=== PATIENT | male | born 1955 | race Two or more races ===

== ENCOUNTER 2017-06-18 06:30 | Day surgery (SDC) | payer OTHER ==
[2017-06-14 12:28] LABS: BASOPHILS % (AUTO) 1.2 % (0.0-2.0); EOSINOPHILS % (AUTO) 1.9 % (0.0-3.0); HEMATOCRIT 37.3 % (42.0-52.0); HEMOGLOBIN 12.2 G/DL (14.2-18.0); LYMPHOCYTES % (AUTO) 15.7 % (20.0-45.0); MEAN CORPUSCULAR VOLUME 86 FL (80-99); MONOCYTES % (AUTO) 10.2 % (1.0-10.0); NEUTROPHILS % (AUTO) 70.9 % (45.0-75.0); PLATELET COUNT 183 K/UL (150-450); RED BLOOD COUNT 4.36 M/UL (4.70-6.10); RED CELL DISTRIBUTION WIDTH 13.4 % (11.6-14.8); WHITE BLOOD COUNT 5.5 K/UL (4.8-10.8)
[2017-06-14 12:39] LABS: ANION GAP 6 mmol/L (5-15); BLOOD UREA NITROGEN 33 mg/dL (7-18); CARBON DIOXIDE 30 MMOL/L (21-32); CHLORIDE 105 MMOL/L (98-107); CREATININE 1.6 MG/DL (0.55-1.30); POTASSIUM 3.9 MMOL/L (3.5-5.1); SODIUM 141 MMOL/L (136-145)
--- NOTE | 2017-06-15 12:54 | Pre-Procedure Note/Attestation ---
Pre-Procedure Note/Attestation Complete Prior to Procedure Planned Procedure: left Procedure Narrative: phaco with iol Indications for Procedure Pre-Operative Diagnosis: cataract Attestation I attest that I discussed the nature of the procedure; its benefits; risks and complications; and alternatives (and the risks and benefits of such alternatives ), prior to the procedure, with the patient (or the patient's legal sales training representative). I attest that, if there was a reasonable possibility of needing a blood transfusion, the patient (or the patient's legal sales training representative) was given the [facility] standardized written summary, pursuant to the [place] Blood Safety Act ([place] Health and Safety Code # 1645, as amended). I attest that I re-evaluated the patient just prior to the surgery and that there has been no change in the patient's H&P, except as documented below: ESTER PARNELL Jun 15, 2017 12:54
--- NOTE | 2017-06-15 12:56 | Opthalmology H&P ---
Ophthalmology H&P H&P Chief Complaint: decreased vision in left eye HPI Vision Affects Ability to: read, focus/use eyes together, manage personal affairs HPI Narrative blurry vision Exam Visual Acuity: OD: 20/50 OS: CF Tension: OD: 12 OS: 14 Eye Exam: normal OU: external exam, palpebral fissure-width, marginal reflex distance, levator function, corneas, anterior chambers; findings: lens - OD: cortical OS: ns, fundus exam - pdr OU Assessment/Plan Diagnosis: (1) Cortical age-related cataract, left eye Attestation Attestation The risks and benefits of the surgery as well as alternative procedures were explained to the patient in detail. ESTER PARNELL Jun 15, 2017 12:56
--- NOTE | 2017-06-15 12:58 | Opthalmology H&P ---
Ophthalmology H&P H&P Chief Complaint: decreased vision in left eye HPI Vision Affects Ability to: read, focus/use eyes together, manage personal affairs HPI Narrative blurry vision Exam Visual Acuity: OD: 20/50 OS: CF Tension: OD: 12 OS: 14 Eye Exam: normal OU: external exam, palpebral fissure-width, marginal reflex distance, levator function, corneas, anterior chambers; findings: lens - OD: CORTICAL OS; NS Assessment/Plan Diagnosis: (1) Cortical age-related cataract, left eye Treatment Plan: cataract extraction w/ lens implant Goals of Treatment: improvement of vision, enhance quality of life Attestation Attestation The risks and benefits of the surgery as well as alternative procedures were explained to the patient in detail. ESTER PARNELL Jun 15, 2017 12:58
[~2017-06-18] VITALS: Ht 177.8 cm; Wt 79.4 kg
[2017-06-18] VITALS (10 sets, daily range): BP systolic 120–156; BP diastolic 70–96
[~2017-06-18 06:30] MED LIST: GLIPIZIDE XL10 MG ORAL; LISINOPRIL5 MG ORAL; SIMVASTATIN10 MG ORAL
[2017-06-18] MEDS ORDERED: Proparacaine 0.5% Opth Soln 15ml LEFT EYE ONE (07:00)
[2017-06-18] MEDS ORDERED: Dexamethasone 4mg/ml vial ONE (07:00)
[2017-06-18] MEDS ORDERED: Pred Forte 1% Opth Susp 1ml ONE (07:00)
[2017-06-18] MEDS ORDERED: Maxitrol Opth Oint 3.5gm ONE (07:00)
[2017-06-18] MEDS ORDERED: Akten 3.5% 1ml Btl LEFT EYE ONE (07:00)
[2017-06-18] MEDS ORDERED: Tetracaine 0.5% Opth 4ml Soln LEFT EYE ONE (07:00)
[2017-06-18] MEDS ORDERED: BASAGLAR K100 UNIT/1 SQ (08:18)
[2017-06-18] MEDS ORDERED: OMEGA-31000 M1 PO (08:19)
[2017-06-18] MEDS: Tropicamide 1% Opth 15ml Soln LEFT EYE SCH ×3 (08:33→08:52)
[2017-06-18] MEDS: Cyclopentolate 1% Opth Sol 2ml LEFT EYE SCH ×3 (08:34→08:51)
[2017-06-18] MEDS: Phenylephrine 10% Opth Soln 5ml LEFT EYE SCH ×3 (08:34→08:51)
[2017-06-18] MEDS: Diclofenac Sod 0.1% Op Soln LEFT EYE SCH ×3 (08:35→08:52)
[2017-06-18] MEDS: Tobramycin Op Soln 0.3% 5ml LEFT EYE SCH ×3 (08:36→08:51)
[2017-06-18] MEDS ORDERED: BSS 15ml BTL ONE (09:30)
[2017-06-18] MEDS ORDERED: Pilocarpine 2% Opth 15ml Soln ONE (09:30)
[2017-06-18] MEDS ORDERED: EPINEPHrine 1mg/1ml Amp ONE (09:30)
[2017-06-18] MEDS ORDERED: BSS 500ml btl ONE (09:30)
[2017-06-18] MEDS ORDERED: Sodium Hyaluronate 10 mg/ml 0.85ml ONE (09:31)
[2017-06-18] MEDS ORDERED: Povidone-Iodine 5% opth solution ONE (09:31)
[2017-06-18] MEDS ORDERED: LR 1000ml 1,000 ML IVLG SCH ×2 (09:57→10:32)
--- NOTE | 2017-06-18 09:59 | Anethesia Preoperative Eval ---
Lawson Calderon MD 06/18/17 0959: Anesthesia Pre-op [facility] General Date of Evaluation: Jun 18, 2017 Anesthesiologist: Yumiko ASA Score: ASA 3 Mallampati Score Class I : Soft palate, uvula, fauces, pillars visible Class II: Soft palate, uvula, fauces visible Class III: Soft palate, base of uvula visible Class IV: Only hard plate visible Mallampati Classification: Class II Surgeon: Felisha Diagnosis: Cat OS Surgical Procedure: Cat Ext IOL OS Anesthesia History: none Family History: no anesthesia problems Allergies: Coded Allergies: No Known Allergies (Unverified , 06/14/17) Medications: see eMAR Past Medical History Cardiovascular: Reports: HTN, other - HL Endocrine: Reports: DM Anesthesia Pre-op Phys. Exam Physician Exam Last Vital Signs Date Time Temp Pulse Resp B/P (MAP) Pulse Ox O2 Delivery O2 Flow Rate FiO2 06/18/17 08:37 98.4 79 18 156/96 100 Room Air 98.4 Constitutional: NAD Neurologic: CN 2-12 intact Cardiovascular: RRR Respiratory: CTA Gastrointestinal: S/NT/ND Airway Exam Mallampati Score: Class II MO: full ROM: full Teeth: missing, intact Anesthesia Pre-op A/P Risk Assessment & Plan Assessment: ASA 3 Plan: TIVA Status Change Before Surgery: No OZZY KOLB M.D. 06/18/17 1032: Anesthesia Pre-op [facility] General Date of Evaluation: Jun 18, 2017 Time of Evaluation: 10:04 Anesthesiologist: Marjorie ASA Score: ASA 3 Mallampati Classification: Class II Surgeon: Felisha Diagnosis: L eye cataract Surgical Procedure: L eye cataract exraction Anesthesia History: none Family History: no anesthesia problems Allergies: Coded Allergies: No Known Allergies (Unverified , 06/14/17) Past Medical History Cardiovascular: Reports: HTN; Denies: CAD, [place], valve dz, arrhythmia, other Pulmonary: Denies: asthma, COPD, VIJAYA, other Gastrointestinal/Genitourinary: Reports: GERD; Denies: CRI, ESRD, other Neurologic/Psychiatric: Denies: dementia, CVA, depression/anxiety, TIA, other Endocrine: Reports: DM - stable on insulin; Denies: hypothyroidism, steroids, other HEENT: Reports: cataract (L), cataract (R); Denies: glaucoma, [place] (L), [place] (R), other Hematology/Immune: Denies: anemia, DVT, bleeding disorder, other Musculoskeletal/Integumentary: Denies: OA, RA, DJD, DDD, edema, other PMH Narrative: as above PSxH Narrative: See H&P Anesthesia Pre-op Phys. Exam Physician Exam Constitutional: NAD Neurologic: CN 2-12 intact Cardiovascular: RRR, no M/R/G Respiratory: CTA Gastrointestinal: S/NT/ND Airway Exam Mallampati Score: Class II MO: full Neck: flexible ROM: full Teeth: missing Dentures: no upper, no lower Anesthesia Pre-op A/P Labs See chart Accucheck 155 at admission Studies Pre-op Studies: EKG - SR Risk Assessment & Plan Assessment: ASA 3 Plan: MAC Status Change Before Surgery: No Pre-Antibiotics Drug: none Lawson Calderon MD Jun 18, 2017 09:59 OZZY KOLB M.D. Jun 18, 2017 10:32
[2017-06-18] MEDS ORDERED: LORazepam Inj 2mg/ml 1ml IV PRN (10:00)
[2017-06-18] MEDS ORDERED: Norco 5mg/325mg tab ORAL PRN (10:00)
[2017-06-18] MEDS ORDERED: Labetalol 5mg/ml 20ml vial IV PRN (10:00)
[2017-06-18] MEDS ORDERED: Atropine Inj 1mg/10ml Syr IV PRN (10:00)
[2017-06-18] MEDS ORDERED: Midazolam 2mg/2ml Inj IVP PRN (10:00)
[2017-06-18] MEDS ORDERED: fentaNYL 100 mcg/2 mL IV ONE (10:00)
[2017-06-18] MEDS ORDERED: Hydromorphone 0.5mg/0.5ml inj IVP PRN (10:00)
[2017-06-18] MEDS ORDERED: oxyCODONE HCL/Acetaminophen 5/325mg ORAL PRN (10:00)
[2017-06-18] MEDS ORDERED: HYDROcodone/Acetamin 7.5/325 tab ORAL PRN (10:00)
[2017-06-18] MEDS ORDERED: Ketorolac 30mg Inj IV PRN ×2 (10:00)
[2017-06-18] MEDS ORDERED: Propofol 200mg/20ml IV ONE (10:00)
[2017-06-18] MEDS ORDERED: Sterile Water Irrig 1000ml IRRIG ONE (10:00)
[2017-06-18] MEDS ORDERED: LR 1000ml ONE (10:00)
[2017-06-18] MEDS ORDERED: fentaNYL 100 mcg/2 mL IV PRN ×2 (10:00→10:45)
[2017-06-18] MEDS ORDERED: NS Irrig 1000ml ONE (10:00)
[2017-06-18] MEDS ORDERED: DiphenhydrAMINE 50mg/ml Inj IVP PRN ×2 (10:00→10:45)
[2017-06-18] MEDS ORDERED: Midazolam 2mg/2ml Inj ONE (10:00)
--- NOTE | 2017-06-18 10:04 | Immediate Post-Op Evaluation ---
Immediate Post-Op Evalulation Immediate Post-Op Evalulation Procedure: Cat Ext IOL OS Date of Evaluation: Jun 18, 2017 Blood Products: 0 Estimated Blood Loss: 1 Urinary Output: 0 Pain Score (1-10): 1 Nausea: No Vomiting: No Complications 0 Patient Status: awake, reacts, patent, none Hydration Status: adequate Lawson Calderon MD Jun 18, 2017 10:04
--- NOTE | 2017-06-18 10:04 | 48 Hour Post Anesthesia Eval ---
Post Anesthesia Evaluation Procedure: Cat Ext IOL OS Date of Evaluation: Jun 18, 2017 Airway: patent Nausea: No Vomiting: No Pain Intensity: 1 Hydration Status: adequate Cardiopulmonary Status: Stable Mental Status/LOC: patient returned to baseline Follow-up Care/Observations: 0 Post-Anesthesia Complications: 0 Follow-up care needed: ready to discharge Lawson Calderon MD Jun 18, 2017 10:04
[2017-06-18] MEDS ORDERED: Sodium Hyaluronate 14 mg/ml 0.85ml ONE (10:08)
--- NOTE | 2017-06-18 11:28 | Immediate Post-Op Evaluation ---
Immediate Post-Op Evalulation Immediate Post-Op Evalulation Procedure: Cat Ext IOL OS Date of Evaluation: Jun 18, 2017 Time of Evaluation: 10:50 IV Fluids: 400 Blood Products: none Estimated Blood Loss: none Urinary Output: none Blood Pressure Systolic: 132 Blood Pressure Diastolic: 64 Pulse Rate: 78 Respiratory Rate: 20 O2 Sat by Pulse Oximetry: 98 Temperature (Fahrenheit): 97.6 Pain Score (1-10): 1 Nausea: No Vomiting: No Complications none Patient Status: awake, patent, none Hydration Status: adequate OZZY KOLB M.D. Jun 18, 2017 11:28
--- NOTE | 2017-06-19 11:18 | Brief Operative Note ---
Immediate Post Operative Note Operative Note Chief Complaint: blurry vision Pre-op Diagnosis: cataract, OS Procedure: phaco with IOL Post-op Diagnosis: Pseudophakia Post-op Diagnosis: same as pre-op Findings: consistent w/pre-op dx studies Surgeon: Felisha Anesthesiologist: Ever Anesthesia: MAC Specimen: none Complications: none Condition: stable Fluids: L Estimated Blood Loss: none Drains: none Implant(s) used?: Yes ESTER PARNELL Jun 19, 2017 11:18
--- NOTE | 2017-06-19 11:44 | Operative Note - PDOC ---
Operative Note Operative Note Date of Operation/Procedure: Jun 18, 2017 Chief Complaint: blurry vision Pre-op Diagnosis: cataract, OS Procedure: phaco with IOL Post-op Diagnosis: Pseudophakia Post-op Diagnosis: same as pre-op Operative Findings: consistent w/pre-op dx studies Surgeon: Felisha Anesthesiologist: Ever Anesthesia: MAC Specimen: none Complications: none Condition: stable Fluids: L Estimated Blood Loss: none Drains: none Implant(s) used?: Yes Indications for Procedure cataract Description of Procedure This patient has been complaining visually significant cataract in the affected eye with the best corrected visual acuity under moderate glare conditions worse. The patient complains of difficulties with glare in performing activities of daily living and wants to manage personal affairs with comfort and accuracy and see well enough to move with safety at home and outdoors. The risks, benefits and alternatives of the procedure were discussed with the patient in the office prior to scheduling surgery. All questions from the patient were answered after the surgical procedure was explained in detail. The risks of the procedure as explained to the patient include, but are not limited to, pain, infection, bleeding, loss of vision, retinal detachment, need for further surgery, loss of lens nucleus, double vision, etc. Alternative procedures were discussed which include, to do nothing or seek a second opinion. Informed consent for this procedure was obtained from the patient. The patient was referred to a primary care physician for a cardiopulmonary clearance prior to surgery, after proper evaluation was done patient was properly scheduled for outpatient surgery. The patient was brought to the operating room where the anesthesiologist established I.V. lines and cardiac monitoring leads. Mild intravenous sedation was administered. The patient was then prepared with a 5% solution of povidone -iodine to the conjunctival fornix and lashes, and a 5% solution of povidone- iodine to the lids and periorbital skin. The patient was then draped in the usual sterile fashion. A lid speculum was then placed in the operative eye. A keratome blade was then used to create a biplanar incision into the anterior chamber. Viscoelastics was then instilled into the anterior chamber. A capsulorrhexis was then fashioned with an utrata forceps by a BSS and a cannula were then used to hydrodissect and hydro delineate the lens. Paracentesis incision was made at 3 o'clock with sharp blade. The phacoemulsification unit, after being properly adjusted and tested, was then used to emulsify the nucleus. Irrigation and aspiration of residual cortical material was done using the I and A unit. Healon was then instilled into the anterior chamber. The corneal wound was then enlarged to the size of the optic with the lopez keratome blade. The intraocular lens was then inspected for right power and size and thought to be satisfactory. Then the lens was gently placed in the capsular bag. Positioning within the capsular bag was confirmed by direct visualization. Optic centration was accomplished with a Sinskey hook. Viscoelastics was removed from the anterior chamber using the irrigation and aspiration unit. The corneal wound was then tested for leaks and none were found. The lid speculum were then removed. Sponge and needle counts were correct. An eye patch and shield were placed over the operative eye. The patient was taken to the recovery room in stable condition. There were no complications. The patient tolerated the procedure well. The patient was then transferred to the ambulatory surgery unit in stable and satisfactory condition , was given detailed written instructions and asked to follow up in the office the next day. ESTER PARNELL M.D. ESTER PARNELL Jun 19, 2017 11:44
--- NOTE | 2017-06-24 17:21 | Cardiology Report ---
APPROVED REPORT EKG Measurement Heart [id number] VT [id number] Sinus rhythm with occasional premature ventricular complexes Minimal voltage criteria for LVH, may be normal variant Nonspecific T wave abnormality Abnormal ECG
--- NOTE | 2017-06-24 19:45 | Pre-op HX & Phy Repo 2 SIG ---
DATE OF ADMISSION: 06/18/2017 DATE OF EVALUATION: 06/14/2017 REASON FOR EVALUATION: I was asked by Dr. Stephane Baeza to see this 62-year-old male who is going for elective surgery on June 18 on the right eye. The patient has cataract in right eye. Please see Ophthalmology history and physical by Dr. Stephane Baeza. The patient was evaluated at outpatient procedure of [facility]. The patient has a children's service worker, son at bedside. The patient speaks [place]ian. PAST MEDICAL HISTORY: Remarkable for hypertension, insulin-dependent diabetes mellitus, and renal insufficiency. No history of heart attack. No pulmonary problem, asthma, or bronchitis. No history of hip arthritis. No thyroid problem. No anemia. No prostate problem. The patient has sinus problem. PAST SURGICAL HISTORY: None. ALLERGIES: Not known to medication or food. PRESENT MEDICATIONS: Includes Levemir 12 units FlexPen daily, lisinopril, and simvastatin. SOCIAL HISTORY: The patient smoked for approximately 10 years, stopped 15 years ago. Occasional alcohol. No street drugs. FAMILY HISTORY: Father with heart attack and diabetes mellitus. Mother with diabetes mellitus, alive at age of 89. PHYSICAL EXAMINATION: GENERAL: Alert, well-developed, and well-nourished male in his 60s. Weight 175 pounds and 5 feet 10 inches tall. VITAL SIGNS: Blood pressure 157/74, temperature 97.7, pulse 83 and regular, and O2 saturation 100% on room air. SKIN: Warm and dry. Pigmentation on both forearms. HEENT: Head normocephalic. Ears, clear. Eyes, full description per Dr. Stephane Baeza. Mouth clear and moist. No dentures. NECK: Supple. No jugular venous distention. Carotids artery +2. No thyroid enlargement or nodes. CHEST: No deformity or asymmetry. LUNGS: Clear. No rales or rhonchi. HEART: Regular sinus rhythm. No murmur. No S3 or S4. ABDOMEN: Soft, benign. No palpable mass. No rebound. EXTREMITIES: No varices. No calf tenderness. No edema. GENITOURINARY TRACT: No CVA tenderness. No dysuria. NERVOUS SYSTEM: No asymmetry. No tremor. No nystagmus. DIAGNOSTIC DATA: ECG, sinus, rate 81 per minute, occasional PVCs, minimal voltage for left ventricular hypertrophy. LABORATORY AND DIAGNOSTIC DATA: White blood cells 5.5, hemoglobin 12.2, hematocrit 37.2. Chemistry, sodium 141, potassium 3.9, BUN 33, creatinine 1.6, glucose 98, calcium 9.0, and estimated GFR 43.9. IMPRESSION: 1. Cataract, right eye. 2. Hypertension, controlled. 3. Insulin-dependent diabetes mellitus. 4. Renal insufficiency, stage 3. The patient was recommended to be n.p.o. after midnight of Sunday. PLAN: Cataract extraction, right eye with intraocular lens implant per Dr. Stephane Baeza. CONCLUSION: The patient has medical problems with insulin-dependent diabetes mellitus which is controlled, hypertension controlled, and renal insufficiency. The patient also has anemia mild and hypertension, follow up with primary care physician and spar cap beveler for renal function. The patient's condition optimized for surgery. Thank you very much, Dr. Baeza, for privilege to participate in the presurgical care of this interesting patient. Angelica Peña M.D. DR: Ny JOB#: [id number] CC:
== END 2017-06-18 12:40 | disposition home or self-care (01) ==
LOC: SUR 06:30
DX: H25.012 Cortical age-related cataract, left eye (principal); N28.9 Disorder of kidney and ureter, unspecified; I10 Essential (primary) hypertension; E11.9 Type 2 diabetes mellitus without complications; Z79.4 Long term (current) use of insulin; Z83.3 Family history of diabetes mellitus; Z82.49 Family history of ischemic heart disease and other diseases of the circulatory system
CPT/HCPCS: 36415; 66984; 80048; 82962; 85025; 93005; J0171; J1100; J2250; J2704; J3010; J3370; J7120; V2632; 94003; 94150

== ENCOUNTER 2017-08-13 06:59 | Day surgery (SDC) | payer OTHER ==
[2017-08-02 10:56] LABS: BASOPHILS % (AUTO) 1.1 % (0.0-2.0); EOSINOPHILS % (AUTO) 2.3 % (0.0-3.0); HEMATOCRIT 37.7 % (42.0-52.0); HEMOGLOBIN 12.7 G/DL (14.2-18.0); LYMPHOCYTES % (AUTO) 15.8 % (20.0-45.0); MEAN CORPUSCULAR VOLUME 86 FL (80-99); MONOCYTES % (AUTO) 8.7 % (1.0-10.0); NEUTROPHILS % (AUTO) 72.1 % (45.0-75.0); PLATELET COUNT 155 K/UL (150-450); RED BLOOD COUNT 4.37 M/UL (4.70-6.10); RED CELL DISTRIBUTION WIDTH 13.2 % (11.6-14.8); WHITE BLOOD COUNT 5.6 K/UL (4.8-10.8)
[2017-08-02 11:09] LABS: INR 0.9 (0.9-1.1)
[2017-08-02 11:14] LABS: ANION GAP 7 mmol/L (5-15); BLOOD UREA NITROGEN 29 mg/dL (7-18); CALCIUM 9.5 MG/DL (8.5-10.1); CARBON DIOXIDE 27 MMOL/L (21-32); CHLORIDE 105 MMOL/L (98-107); CREATININE 1.5 MG/DL (0.55-1.30); POTASSIUM 4.5 MMOL/L (3.5-5.1); SODIUM 139 MMOL/L (136-145)
[2017-08-02 11:27] VITALS: BP 157/76
--- NOTE | 2017-08-02 14:12 | Pre-Procedure Note/Attestation ---
Pre-Procedure Note/Attestation Complete Prior to Procedure Planned Procedure: right Procedure Narrative: phaco with IOL Indications for Procedure Pre-Operative Diagnosis: cataract Attestation I attest that I discussed the nature of the procedure; its benefits; risks and complications; and alternatives (and the risks and benefits of such alternatives ), prior to the procedure, with the patient (or the patient's legal sales representative printing supplies). I attest that, if there was a reasonable possibility of needing a blood transfusion, the patient (or the patient's legal sales representative printing supplies) was given the [facility] standardized written summary, pursuant to the [place] Blood Safety Act ([place] Health and Safety Code # 1645, as amended). I attest that I re-evaluated the patient just prior to the surgery and that there has been no change in the patient's H&P, except as documented below: ESTER PARNELL Aug 02, 2017 14:12
--- NOTE | 2017-08-02 14:23 | Opthalmology H&P ---
Ophthalmology H&P H&P Chief Complaint: decreased vision in right eye HPI Vision Affects Ability to: read, focus/use eyes together, manage personal affairs HPI Narrative blurry vision Exam Visual Acuity: OD: 20/125 OS: 20/80 Tension: OD: 14 OS: 13 Eye Exam: normal OU: external exam, palpebral fissure-width, marginal reflex distance, levator function, corneas, anterior chambers; findings: lens - OD: ns OS: IOL, fundus exam - PDR OU Assessment/Plan Diagnosis: (1) Nuclear age-related cataract, right eye Treatment Plan: cataract extraction w/ lens implant Goals of Treatment: improvement of vision, enhance quality of life Attestation Attestation The risks and benefits of the surgery as well as alternative procedures were explained to the patient in detail. ESTER PARNELL Aug 02, 2017 14:23
--- NOTE | 2017-08-04 19:00 | Pre-op HX & Phy Repo 2 SIG ---
DATE OF ADMISSION: 08/06/2017 PRESURGICAL INTERNAL MEDICINE HISTORY AND PHYSICAL DATE OF EVALUATION: 08/02/2017 REASON FOR EVALUATION: The patient is a 62-year-old male, who is going for elective surgery on 08/06/2017 for right eye. The patient has a cataract, right eye. I was asked by Dr. Stephane Baeza to see this patient. Chart was reviewed. This is second visit to [facility]. The patient was seen and had a surgery on 06/18/2017. Please see the dictated History and Physical. PAST MEDICAL HISTORY/REVIEW OF SYSTEMS: Remarkable for insulin-dependent diabetes mellitus, hypertension, and renal insufficiency. No history of chest pain, palpitation, or heart attack. No stroke or seizures. No anemia. Denies history of GI bleeding. No thyroid problem. No prostate problem. PAST SURGICAL HISTORY: Right eye cataract extraction on 06/18/2017. PRESENT MEDICATIONS: Include Levemir FlexPen 12 units, lisinopril, and simvastatin. ALLERGIES: Not known. HABITS: The patient smoked for 10 years and stopped 15 years ago. Occasional alcohol. No street drugs. FAMILY HISTORY: Father from diabetes and heart attack. Mother alive at the age of 89, also has diabetes mellitus. PHYSICAL EXAMINATION: GENERAL: The patient is alert. Weight 175 pounds and 5 feet 10 inches tall. VITAL SIGNS: Blood pressure 157/76, temperature 98.1, pulse 68 and regular, respirations 18, and O2 saturation 98% on room air. SKIN: The patient's skin is dry and warm. Pigmentation on both forearms. LYMPHATICS: Lymph nodes not enlarged. HEENT: Head, normocephalic. Ears, clear. Eyes, full description per Dr. Stephane Baeza. Mouth, clear and moist. No dentures. NECK: No jugular vein distention. Carotids artery +2. No palpable mass. Lymph nodes not enlarged. CHEST: No deformity or asymmetry. LUNGS: Clear. No rales. Bilateral rhonchi. HEART: Regular. No ectopy. No murmur. ABDOMEN: Soft. No palpable mass. No rebound. EXTREMITIES: No edema. No deformity. No varicose veins. No calf tenderness. GENITOURINARY TRACT: Denies dysuria. No CVA tenderness. NERVOUS SYSTEM: No tremor. No nystagmus. LABORATORY AND DIAGNOSTIC DATA: ECG, sinus rhythm, PVC, left ventricular hypertrophy, nonspecific T-wave abnormality. Lab work obtained and pending. Blood sugar 129 mg/dL fingerstick. IMPRESSION: 1. Cataract, left eye. 2. Hypertension. 3. Insulin-dependent diabetes mellitus. 4. ECG, left ventricular hypertrophy and sinus rhythm with PVC. 5. Renal insufficiency. PLAN: Cataract extraction, left eye with intraocular implant per Dr. Stephane Baeza. CONCLUSION: The patient's vital signs stable. His diabetes controlled by insulin. The patient's recommended to be NPO after midnight 08/05/2017. The patient's condition optimized for surgery. Thank you very much, Dr. Baeza, for privilege to participate in the presurgical care of this interesting patient. Angelica Peña M.D. DR: GAYLA JOB#: [id number] CC:
[~2017-08-13] VITALS: Ht 177.8 cm; Wt 81.6 kg
[2017-08-13] VITALS (7 sets, daily range): BP systolic 146–164; BP diastolic 75–93
[~2017-08-13 06:59] MED LIST changes: +Akten 3.5% 1ml Btl RIGHT EYE ONE; +BASAGLAR K100 UNIT/1 SQ; +Cyclopentolate 1% Opth Sol 2ml RIGHT EYE SCH; +Diclofenac Sod 0.1% Op Soln RIGHT EYE SCH; +OMEGA-31000 M1 PO; +Phenylephrine 10% Opth Soln 5ml RIGHT EYE SCH; +Proparacaine 0.5% Opth Soln 15ml RIGHT EYE ONE; +Tetracaine 0.5% Opth 4ml Soln RIGHT EYE ONE; +Tobramycin Op Soln 0.3% 5ml RIGHT EYE SCH; +Tropicamide 1% Opth 15ml Soln RIGHT EYE SCH
[2017-08-13] MEDS ORDERED: Tetracaine 0.5% Opth 4ml Soln RIGHT EYE ONE (07:00)
[2017-08-13] MEDS ORDERED: Pred Forte 1% Opth Susp 1ml ONE (07:00)
[2017-08-13] MEDS ORDERED: Maxitrol Opth Oint 3.5gm ONE (07:00)
[2017-08-13] MEDS ORDERED: Dexamethasone 4mg/ml vial ONE (07:00)
[2017-08-13] MEDS ORDERED: Akten 3.5% 1ml Btl RIGHT EYE ONE (07:00)
[2017-08-13] MEDS ORDERED: Proparacaine 0.5% Opth Soln 15ml RIGHT EYE ONE (07:00)
[2017-08-13] MEDS: Phenylephrine 10% Opth Soln 5ml RIGHT EYE SCH ×3 (08:10→08:31)
[2017-08-13] MEDS: Diclofenac Sod 0.1% Op Soln RIGHT EYE SCH ×3 (08:11→08:31)
[2017-08-13] MEDS: Tropicamide 1% Opth 15ml Soln RIGHT EYE SCH ×3 (08:11→08:31)
[2017-08-13] MEDS: Tobramycin Op Soln 0.3% 5ml RIGHT EYE SCH ×3 (08:11→08:31)
[2017-08-13] MEDS: Cyclopentolate 1% Opth Sol 2ml RIGHT EYE SCH ×3 (08:11→08:31)
[2017-08-13] MEDS ORDERED: EPINEPHrine 1mg/1ml Amp ONE (09:48)
[2017-08-13] MEDS ORDERED: BSS 15ml BTL ONE (09:49)
[2017-08-13] MEDS ORDERED: Pilocarpine 2% Opth 15ml Soln ONE (09:49)
[2017-08-13] MEDS ORDERED: Sodium Hyaluronate 14 mg/ml 0.85ml ONE (09:49)
[2017-08-13] MEDS ORDERED: BSS 500ml btl ONE (09:49)
[2017-08-13] MEDS ORDERED: Propofol 200mg/20ml IV ONE (10:00)
[2017-08-13] MEDS ORDERED: Sterile Water Irrig 1000ml IRRIG ONE (10:00)
[2017-08-13] MEDS ORDERED: NS Irrig 1000ml ONE (10:00)
[2017-08-13] MEDS ORDERED: LR 1000ml ONE (10:00)
[2017-08-13] MEDS ORDERED: Povidone-Iodine 5% opth solution ONE (10:09)
[2017-08-13] MEDS ORDERED: LR 1000ml 1,000 ML IVLG SCH (10:28)
--- NOTE | 2017-08-13 10:28 | Anethesia Preoperative Eval ---
Anesthesia Pre-op PMH/ROS General Date of Evaluation: Aug 13, 2017 Time of Evaluation: 10:10 Anesthesiologist: Jessica ASA Score: ASA 3 Mallampati Score Class I : Soft palate, uvula, fauces, pillars visible Class II: Soft palate, uvula, fauces visible Class III: Soft palate, base of uvula visible Class IV: Only hard plate visible Mallampati Classification: Class II Surgeon: Felisha Diagnosis: R eye cataract Surgical Procedure: R eye caaract exrtacton Anesthesia History: none Family History: no anesthesia problems Allergies: Coded Allergies: No Known Allergies (Unverified , 08/02/17) Past Medical History Cardiovascular: Reports: HTN; Denies: CAD, [place], valve dz, arrhythmia, other Pulmonary: Denies: asthma, COPD, [place], other Gastrointestinal/Genitourinary: Reports: GERD, CRI; Denies: ESRD, other Neurologic/Psychiatric: Denies: dementia, CVA, depression/anxiety, TIA, other Endocrine: Reports: DM; Denies: hypothyroidism, steroids, other HEENT: Reports: cataract (L), cataract (R); Denies: glaucoma, [place] (L), [place] (R), other Hematology/Immune: Denies: anemia, DVT, bleeding disorder, other Musculoskeletal/Integumentary: Denies: OA, RA, DJD, DDD, edema, other PMH Narrative: as above PSxH Narrative: see H&P Anesthesia Pre-op Phys. Exam Physician Exam Last Vital Signs Date Time Temp Pulse Resp B/P (MAP) Pulse Ox O2 Delivery O2 Flow Rate FiO2 08/13/17 08:13 97.8 77 18 161/93 99 Room Air 97.8 Constitutional: NAD Neurologic: CN 2-12 intact Cardiovascular: RRR, no M/R/G Respiratory: CTA Gastrointestinal: S/NT/ND Airway Exam Mallampati Score: Class II MO: full Neck: stiff ROM: limited Teeth: missing Dentures: no upper, no lower Anesthesia Pre-op A/P Labs see chart Risk Assessment & Plan Assessment: ASA 3 Plan: MAC Status Change Before Surgery: No Pre-Antibiotics Drug: none Abdullahi Amador MD Aug 13, 2017 10:28
[2017-08-13] MEDS ORDERED: Midazolam 2mg/2ml Inj ONE (10:30)
[2017-08-13] MEDS ORDERED: fentaNYL 100 mcg/2 mL IV PRN (10:30)
[2017-08-13] MEDS ORDERED: Labetalol 5mg/ml 20ml vial IV ONE (11:01)
--- NOTE | 2017-08-13 11:09 | Immediate Post-Op Evaluation ---
Immediate Post-Op Evalulation Immediate Post-Op Evalulation Procedure: R eye cataract extraction with IOL Date of Evaluation: Aug 13, 2017 Time of Evaluation: 10:43 IV Fluids: 300 Blood Products: none Estimated Blood Loss: none Urinary Output: none Blood Pressure Systolic: 164 Blood Pressure Diastolic: 78 Pulse Rate: 64 Respiratory Rate: 20 O2 Sat by Pulse Oximetry: 99 Temperature (Fahrenheit): 97.6 Pain Score (1-10): 1 Nausea: No Vomiting: No Complications none Patient Status: awake, patent, none Hydration Status: adequate Abdullahi Amador MD Aug 13, 2017 11:09
--- NOTE | 2017-08-13 12:12 | 48 Hour Post Anesthesia Eval ---
Post Anesthesia Evaluation Procedure: R eye cataract extraction with IOL Date of Evaluation: Aug 13, 2017 Time of Evaluation: 12:11 Blood Pressure Systolic: 158 0: 75 Pulse Rate: 86 Respiratory Rate: 20 Temperature (Fahrenheit): 97.8 O2 Sat by Pulse Oximetry: 98 Airway: patent Nausea: No Vomiting: No Pain Intensity: 1 Hydration Status: adequate Cardiopulmonary Status: stable Mental Status/LOC: patient returned to baseline Follow-up Care/Observations: n/a Post-Anesthesia Complications: none Follow-up care needed: ready to discharge Abdullahi Amador MD Aug 13, 2017 12:12
--- NOTE | 2017-08-14 12:54 | Brief Operative Note ---
Immediate Post Operative Note Operative Note Chief Complaint: blurry vision Pre-op Diagnosis: cataract, OD Procedure: phaco with IOL Post-op Diagnosis: pseudophakia Post-op Diagnosis: same as pre-op Findings: consistent w/pre-op dx studies Surgeon: Felisha Anesthesiologist: Marjorie Anesthesia: MAC Specimen: none Complications: none Condition: stable Fluids: LR Estimated Blood Loss: none Drains: none Implant(s) used?: Yes ESTER PARNELL Aug 14, 2017 12:54
--- NOTE | 2017-08-14 13:20 | Operative Note - PDOC ---
Operative Note Operative Note Date of Operation/Procedure: Aug 13, 2017 Chief Complaint: blurry vision Pre-op Diagnosis: cataract, OD Procedure: phaco with IOL Post-op Diagnosis: pseudophakia Post-op Diagnosis: same as pre-op Operative Findings: consistent w/pre-op dx studies Surgeon: Felisha Anesthesiologist: Marjorie Anesthesia: MAC Specimen: none Complications: none Condition: stable Fluids: LR Estimated Blood Loss: none Drains: none Implant(s) used?: Yes Indications for Procedure cataract Description of Procedure This patient has been complaining visually significant cataract in the affected eye with the best corrected visual acuity under moderate glare conditions worse. The patient complains of difficulties with glare in performing activities of daily living and wants to manage personal affairs with comfort and accuracy and see well enough to move with safety at home and outdoors. The risks, benefits and alternatives of the procedure were discussed with the patient in the office prior to scheduling surgery. All questions from the patient were answered after the surgical procedure was explained in detail. The risks of the procedure as explained to the patient include, but are not limited to, pain, infection, bleeding, loss of vision, retinal detachment, need for further surgery, loss of lens nucleus, double vision, etc. Alternative procedures were discussed which include, to do nothing or seek a second opinion. Informed consent for this procedure was obtained from the patient. The patient was referred to a primary care physician for a cardiopulmonary clearance prior to surgery, after proper evaluation was done patient was properly scheduled for outpatient surgery. The patient was brought to the operating room where the anesthesiologist established I.V. lines and cardiac monitoring leads. Mild intravenous sedation was administered. The patient was then prepared with a 5% solution of povidone -iodine to the conjunctival fornix and lashes, and a 5% solution of povidone- iodine to the lids and periorbital skin. The patient was then draped in the usual sterile fashion. A lid speculum was then placed in the operative eye. A keratome blade was then used to create a biplanar incision into the anterior chamber. Viscoelastics was then instilled into the anterior chamber. A capsulorrhexis was then fashioned with an utrata forceps. BSS and a cannula were then used to hydrodissect and hydro delineate the lens. Paracentesis incision was made at 3 o'clock with sharp blade. The phacoemulsification unit, after being properly adjusted and tested, was then used to emulsify the nucleus. Residual cortical material was aspirated with the irrigation and aspiration unit. Healon was then instilled into the anterior chamber. The corneal wound was then enlarged to the size of the optic with the lopez keratome blade. The intraocular lens was then inspected for right power and size and thought to be satisfactory. Then the lens was gently placed in the capsular bag. Positioning within the capsular bag was confirmed by direct visualization. Optic centration was accomplished with a Sinskey hook. Viscoelastics was removed from the anterior chamber using the irrigation and aspiration unit. The corneal wound was then tested for leaks and none were found. The lid speculum were then removed. Sponge and needle counts were correct. An eye patch and shield were placed over the operative eye. The patient was taken to the recovery room in stable condition. There were no complications. The patient tolerated the procedure well. The patient was then transferred to the ambulatory surgery unit in stable and satisfactory condition , was given detailed written instructions and asked to follow up in the office the next day. ESTER PARNELL Aug 14, 2017 13:20
== END 2017-08-13 12:15 | disposition home or self-care (01) ==
LOC: SDS 06:59
DX: H25.11 Age-related nuclear cataract, right eye (principal); I12.9 Hypertensive chronic kidney disease with stage 1 through stage 4 chronic kidney disease, or unspecified chronic kidney disease; E11.22 Type 2 diabetes mellitus with diabetic chronic kidney disease; N18.9 Chronic kidney disease, unspecified; K21.9 Gastro-esophageal reflux disease without esophagitis; Z87.891 Personal history of nicotine dependence
CPT/HCPCS: 36415; 66984; 80048; 82962; 85025; 85610; 85730; J0171; J1100; J2250; J2704; J3010; J7120; V2632; 94003; 94150